=== PATIENT | female | born 1980 | race Caucasian/White ===

== ENCOUNTER 2019-03-20 16:26 | Emergency (ER) | payer OTHER ==
[~2019-03-20] VITALS: Ht 160 cm; Wt 75.3 kg
[~2019-03-20 16:26] MED LIST: ACHD5005 PO; ALB0.5V; ALBU17AE23; ALBU17AE23 IH; ALBU17AE3; ALBUTERAL INHALER PO; ALPR0.25 PO; AMT10T PO; ARIP15TA; ARPZ10T; ASP81CT GT; ASP81CT PO; ATOR20TA66 PO; ATR20T PO; BUTA1TAB46 PO; CEPH500C PO; CETI10TA57 PO; CLON0.5T60 PO; CPR500T PO; CYCL10TA9 PO; DESV100T PO; DESV50TA PO; DICY10CA26 PO; DIVA-20 PO; DIVA500T PO; DIVA500T15; DOXY100C2 PO; DULO30CA PO; DULO60CA6 PO; DVL500TEC; DVL500TSR; ESCI20TA2; ESTR1TAB24 PO; ESTR2TAB PO; FENO160T PO; FLC150T PO; FLUC50TA PO; GEMF600T3 PO; GLMP2T PO; GUAI100L2 PO; HC2.5C30 TOP; HYDR-1231 PO; HYDR-3714 PO; HYDR-690; HYDR-690 PO; HYDR-700 PO; HYDR-707 PO; HYDR12.56 PO; HYDR1CAP2; HYDR1TAB PO; HYDR1TAB75 PO; HYDR1TAB8 OP; HYDR25CA5; HYOS0.1216 PO; HYOS0.1217 PO; IB; IBP800T; IBP800T PO; ILOP8TAB PO; KETO-22 PO; KETO75CA PO; LEVO500T69 PO; LEVO750T6 PO; LISI1TAB6 PO; LISI20TA PO; LISINOPRIL; LORA0.5T34 GT; LORA1TAB; LORA1TAB PO; LRZ1T; MELO-195 PO; METH-53 PO; METR500T PO; MTF500T PO; MTH750T PO; NAPR-243 PO; NAPR-248; NAPR-689 PO; NAPR250T PO; NAPR250T34 PO; NAPR550T PO; NF-ESOM40C PO; NITR-65 PO; NORG1TAB69 PO; OMEP20CA12 PO; ONDA8TAB13 PO; ONDAN4ODT PO; ONDN4T PO; OXYC-272 PO; PALI3TAB2 PO; PALI6TAB2 PO; PHEN200T27 PO; PNT40TEC PO; PRED10TA PO; PRED20TA PO; PRM25T PO; PROP1TAB77; PROP1TAB77 PO; QUET50TA PO; RT-ALBUINH IH; SOLI5TAB4 PO; SRTR100T; STOOL SOFTENER; SUMA25TA3 PO; TAPE50TA PO; TOPI100T PO; TRAM-21 PO; TRAM50TA2 PO; TRAZ150T42 PO; VARE0.5T PO; VISTARIL; ZIPR60CA6 PO; [UNRECOGNIZED DRUG - OTHER]; bcp
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
[2019-03-20] MEDS ORDERED: ACHD5005 PO (18:23)
--- NOTE | 2019-03-20 18:27 | Diagnostic Imaging Report ---
EXAMINATION: Right hand at 6:06 p.m. INDICATION: Injury, hand pain. Three views were obtained. There is no fracture, dislocation or acute bony abnormality evident. The radiocarpal joint is well maintained and appears similar to the prior exam of 02/27/2012. The soft tissues are unremarkable. IMPRESSION: There is no evidence for an acute bony abnormality. Dictated by: Dictated on workstation # [id number]
[2019-03-20 18:38] VITALS: BP 112/76
[2019-03-20] MEDS ORDERED: RX-HYDROCODONE/APAP 5/325 MG #4 TAB PK PO PRN (18:45)
== END 2019-03-20 18:40 | disposition home or self-care (01) ==
LOC: EDUNIT# 16:26 → ER 16:27
DX: S62.91XA Unspecified fracture of right hand, initial encounter for closed fracture (principal); I10 Essential (primary) hypertension; E11.9 Type 2 diabetes mellitus without complications; J45.909 Unspecified asthma, uncomplicated; K58.9 Irritable bowel syndrome, unspecified; Z88.5 Allergy status to narcotic agent; Z88.8 Allergy status to other drugs, medicaments and biological substances; Z88.2 Allergy status to sulfonamides; Z79.52 Long term (current) use of systemic steroids; Z90.710 Acquired absence of both cervix and uterus; Z90.49 Acquired absence of other specified parts of digestive tract; W22.8XXA Striking against or struck by other objects, initial encounter
CPT/HCPCS: 29125; 73130

== ENCOUNTER → 2019-03-25 | Outpatient (CLI) | payer OTHER ==
--- NOTE | 2019-03-25 10:28 | Diagnostic Imaging Report ---
INDICATION: Right hand pain particularly in the region of the 5th metacarpal. Correlation is made with prior right hand radiograph from 03/20/2019. FINDINGS: The visualized metacarpals appear to be intact. Definite metacarpal fracture is not seen. Phalanges are intact. The carpus is unremarkable. IMPRESSION: No acute bony abnormality is detected. Dictated by: Dictated on workstation # [id number]
== END ==
LOC: ORTHO 08:40
PROVIDERS: ATTEND Orthopaedic Surgery
DX: S62.91XA Unspecified fracture of right hand, initial encounter for closed fracture (principal); W22.8XXA Striking against or struck by other objects, initial encounter
CPT/HCPCS: 73130; 99203

== ENCOUNTER 2019-10-02 14:46 | Inpatient (IN) | payer OTHER ==
[~2019-10-02] VITALS: Ht 157.5 cm; Wt 78.2 kg
[2019-10-02] MEDS ORDERED: NS IV 500 ML 500 ML ONE (15:07)
[2019-10-02] MEDS ORDERED: NS IV 500 ML 500 ML IV SCH (15:15)
[2019-10-02] MEDS ORDERED: PROMETHAZINE INJ 25 MG/ML (PHENERGAN) AMP IVP ONE (15:15)
[2019-10-02] MEDS ORDERED: fentaNYL INJECTION 100 MCG/2 ML AMP IVP ONE (15:15)
--- NOTE | 2019-10-02 15:17 | ED Abdominal Pain ---
General Chief Complaint: Abdominal/GI Problems Stated Complaint: ABD PAIN Source of Information: Patient Exam Limitations: No Limitations History of Present Illness Date Seen by Provider: Oct 02, 2019 Time Seen by Provider: 15:00 Initial Comments C/O constant left upper and lower abdominal pain x 1 week. Was evaluated and treated by her PCP on ThursdaySeptember 27 for clinical diverticulitis. States she was placed on ABX but has been unable to take d/t severe nausea/vomiting. Took Phenergan PO this am with no relief. Reports chronic abdominal bloating/swelling x 1 year. Timing/Duration: 1 Week Severity/Quality: Moderate Location: LUQ, LLQ Radiation: No Radiation Activities at Onset: None Associated Symptoms: Nausea/Vomiting Allergies and Home Medications Allergies Coded Allergies: carisoprodol (Unverified Allergy, Severe, RESPIRATORY PROBLEMS, 07/03/09) codeine (Unverified Allergy, Severe, DIFFICULTY BREATHING, 05/24/14) nitrofurantoin (Unverified Allergy, Mild, 05/30/08) tramadol (Unverified Allergy, Mild, hives, 04/12/13) Sulfa (Sulfonamide Antibiotics) (Verified Allergy, Unknown, 08/10/07) phenobarbital (Verified Allergy, Unknown, 08/10/07) tuberculin, purified protein deriva (Verified Allergy, Unknown, 08/10/07) Uncoded Allergies: RESTLESS LEGS MED (Allergy, Mild, 05/30/08) Home Medications Hydrocodone Bit/Acetaminophen 1 Tab Tab, 1 EACH PO Q4-6HR PRN for PAIN-MODERATE Prescribed by: LISA PARSONS on 03/20/191822 Naproxen 500 Mg Tablet, 500 MG PO BID Prescribed by: LISA PARSONS on 07/09/14 184 Prednisone 20 Mg Tablet, 40 MG PO DAILY Prescribed by: AZAM MOORE on 06/21/14 213 Patient Home Medication List Home Medication List Reviewed: Yes Review of Systems Review of Systems Constitutional: weakness EENTM: No Symptoms Reported Respiratory: No Symptoms Reported Cardiovascular: No Symptoms Reported Gastrointestinal: See HPI; Denies Blood Streaked Stools; Diarrhea, Poor Fluid Intake; Denies Rectal Bleeding Genitourinary: No Symptoms Reported Musculoskeletal: no symptoms reported Skin: no symptoms reported Psychiatric/Neurological: No Symptoms Reported Endocrine: No Symptoms Reported Hematologic/Lymphatic: No Symptoms Reported Past Dsspupx-Jjmjyu-Iyeflb Hx Patient Social History Recent Foreign Travel: No Contact w/Someone Who Travel: No Immunizations Up To Date Tetanus Booster (TDap): Unknown Date of Pneumonia Vaccine: Dec 13, 2010 Date of Influenza Vaccine: Nov 23, 2013 Past Medical History Appendectomy, Section, Gallbladder, Hysterectomy Asthma High Cholesterol, Hypertension Seizure Disorder Reproductive Disorders: Yes (S/P HYST. 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 oz. 73.580307ue; 29.00 BMI Method:Stated General Appearance: WD/WN, mild distress HEENT: normal ENT inspection, pharynx normal Neck: full range of motion, normal inspection Respiratory: lungs clear, normal breath sounds, no respiratory distress Cardiovascular: normal peripheral pulses, regular rate, rhythm Gastrointestinal: abnormal bowel sounds (HYPOACTIVE ), distended, guarding, tenderness (GENERALIZED ) Extremities: normal range of motion, normal inspection Back: normal inspection, no CVA tenderness Neurologic/Psychiatric: alert, oriented x 3 Skin: normal color, warm/dry Progress/Results/Core Measures Results/Orders Lab Results Laboratory Tests Test 10/02/19 15:10 10/02/19 16:17 Range/Units White Blood Count 10.9 4.3-11.0 10^3/uL Red Blood Count 5.32 4.35-5.85 10^6/uL Hemoglobin 17.4 H 11.5-16.0 G/DL Hematocrit 46 35-52 % Mean Corpuscular Volume 87 80-99 FL Mean Corpuscular Hemoglobin 33 25-34 PG Mean Corpuscular Hemoglobin Concent 38 H 32-36 G/DL Red Cell Distribution Width 12.1 10.0-14.5 % Platelet Count 221 130-400 10^3/uL Mean Platelet Volume 9.6 7.4-10.4 FL Neutrophils (%) (Auto) 49 42-75 % Lymphocytes (%) (Auto) 39 12-44 % Monocytes (%) (Auto) 7 0-12 % Eosinophils (%) (Auto) 4 0-10 % Basophils (%) (Auto) 1 0-10 % Neutrophils # (Auto) 5.3 1.8-7.8 X 10^3 Lymphocytes # (Auto) 4.3 H 1.0-4.0 X 10^3 Monocytes # (Auto) 0.8 0.0-1.0 X 10^3 Eosinophils # (Auto) 0.4 H 0.0-0.3 10^3/uL Basophils # (Auto) 0.1 0.0-0.1 10^3/uL Urine Color YELLOW Urine Clarity CLEAR Urine pH 5.0 5-9 Urine Specific [place] <=1.005 1.016-1.022 Urine Protein NEGATIVE NEGATIVE Urine Glucose (UA) 3+ H NEGATIVE Urine Ketones NEGATIVE NEGATIVE Urine Nitrite NEGATIVE NEGATIVE Urine Bilirubin NEGATIVE NEGATIVE Urine Urobilinogen 0.2 < = 1.0 MG/DL Urine Leukocyte Esterase NEGATIVE NEGATIVE Urine RBC (Auto) NEGATIVE NEGATIVE Urine RBC NONE /HPF Urine WBC NONE /HPF Urine Squamous Epithelial Cells 0-2 /HPF Urine Crystals NONE /LPF Urine Bacteria NEGATIVE /HPF Urine Casts NONE /LPF Urine Mucus NEGATIVE /LPF Urine Culture Indicated NO Sodium Level 133 L 135-145 MMOL/L Potassium Level 3.8 3.6-5.0 MMOL/L Chloride Level 97 L 98-107 MMOL/L Carbon Dioxide Level 15 L 21-32 MMOL/L Anion Gap 21 H 5-14 MMOL/L Blood Urea Nitrogen 5 L 7-18 MG/DL Creatinine 0.95 0.60-1.30 MG/DL Estimat Glomerular Filtration Rate > 60 BUN/Creatinine Ratio 5 Glucose Level 551 *H 70-105 MG/DL Calcium Level 9.1 8.5-10.1 MG/DL Corrected Calcium 9.0 8.5-10.1 MG/DL Total Bilirubin 0.4 0.1-1.0 MG/DL Aspartate Amino Transf (AST/SGOT) 31 5-34 U/L Alanine Aminotransferase (ALT/SGPT) 54 0-55 U/L Alkaline Phosphatase 187 H 40-136 U/L Total Protein 7.4 6.4-8.2 GM/DL Albumin 4.1 3.2-4.5 GM/DL Lipase 49 8-78 U/L Beta-Hydroxybutyrate (Chem panel) 0.08 0.00-0.27 MMOL/L Blood Gas Puncture Site LT AC Blood Gas Patient Temperature 98.2 Arterial Blood pH 7.43 7.37-7.43 Arterial Blood Partial Pressure CO2 41 35-45 MMHG Arterial Blood Partial Pressure O2 60 L 79-93 MMHG Arterial Blood HCO3 27 23-27 MMOL/L Arterial Blood Total CO2 28.1 21.0-31.0 MMOL/L Arterial Blood Oxygen Saturation 91 L 94-100 % Arterial Blood Base Excess 2.7 H -2.5-2.5 MMOL/L Marito Test YES-POS Blood Gas Ventilator Setting NO Blood Gas Inspired Oxygen NA My Orders Orders - SHEYLA GARCÍA APRN Urinalysis (10/02/19 14:57) Cbc With Automated Diff (10/02/19 14:57) Comprehensive Metabolic Panel (10/02/19 14:57) Iv Heplock-Insert (Order) (10/02/19 14:57) Ct Abdomen/Pelvis W (10/02/19 15:04) Fentanyl Injection (Sublimaze Injection (10/02/19 15:15) Promethazine Injection (Phenergan Injec (10/02/19 15:15) Ns Iv 500 Ml (Sodium Chloride 0.9%) (10/02/19 15:15) Ns Iv 500 Ml (Sodium Chloride 0.9%) (10/02/19 15:07) Lipase (10/02/19 15:19) Ns Iv 1000 Ml (Sodium Chloride 0.9%) (10/02/19 16:15) Insulin (Regular) Human (Novolin R (Per (10/02/19 16:15) Medications Given in ED Current Medications Medications Dose Ordered Sig/Luigi Route Start Time Stop Time Status Last Admin Dose Admin Fentanyl Citrate 50 mcg ONCE ONCE IVP 10/02/19 15:15 10/02/19 15:16 DC 10/02/19 15:14 50 MCG Iohexol 100 ml ONCE ONCE IV 10/02/19 15:30 10/02/19 15:36 DC 10/02/19 15:31 97 ML Promethazine HCl 25 mg ONCE ONCE IVP 10/02/19 15:15 10/02/19 15:16 DC 10/02/19 15:14 25 MG Sodium Chloride 100 ml ONCE ONCE IV 8/9/20 15:30 10/02/19 15:36 DC 10/02/19 15:33 80 ML Vital Signs/I&O 10/02/19 14:55 Temp 36.8 Pulse 103 Resp 15 B/P (MAP) 149/111 (124) Pulse Ox 95 O2 Delivery Room Air Progress Progress Note : Time: 16:48 Progress Note Discussed with Dr. Boykin. Accepted admission for colitis, hyperglycemia. Departure Communication (Admissions) Time/Spoke to Admitting Phy: 16:48 Impression Primary Impression: Colitis Additional Impression: Hyperglycemia Disposition: ADMITTED INPATIENT Condition: Stable Admissions Decision to Admit Reason: Admit from ER (General) Decision to Admit/Date: Oct 02, 2019 Time/Decision to Admit Time: 16:50 Departure-Patient Inst. Referrals: NO,LOCAL PHYSICIAN (PCP/Family) Primary Care Physician SHEYLA GARCÍA APRN Oct 02, 2019 15:17
[2019-10-02] MEDS ORDERED: IOHEXOL 350 MG/ML 100 ML (OMNIPAQUE 350) VIAL IV ONE (15:30)
[2019-10-02] MEDS ORDERED: NS 100 ML (IVPB) BAG IV ONE (15:30)
[2019-10-02] MEDS ORDERED: HOLD METFORMIN - RECEIVED CONTRAST 20 ML VIAL IV SCH (15:30)
[2019-10-02 15:31] LABS: BASOPHILS # (AUTO) 0.1 10^3/uL (0.0-0.1); BASOPHILS % (AUTO) 1 % (0-10); EOSINOPHILS # (AUTO) 0.4 10^3/uL (0.0-0.3); EOSINOPHILS % (AUTO) 4 % (0-10); HEMATOCRIT 46 % (35-52); HEMOGLOBIN 17.4 G/DL (11.5-16.0); LYMPHOCYTES # (AUTO) 4.3 X 10^3 (1.0-4.0); LYMPHOCYTES % (AUTO) 39 % (12-44); MEAN CORPUSCULAR HEMOGLOBIN 33 PG (25-34); MEAN CORPUSCULAR HGB CONC 38 G/DL (32-36); MEAN CORPUSCULAR VOLUME 87 FL (80-99); MEAN PLATELET VOLUME 9.6 FL (7.4-10.4); MONOCYTES # (AUTO) 0.8 X 10^3 (0.0-1.0); MONOCYTES % (AUTO) 7 % (0-12); NEUTROPHILS # (AUTO) 5.3 X 10^3 (1.8-7.8); NEUTROPHILS % (AUTO) 49 % (42-75); PLATELET COUNT 221 10^3/uL (130-400); RED CELL DISTRIBUTION WIDTH 12.1 % (10.0-14.5); WHITE BLOOD COUNT 10.9 10^3/uL (4.3-11.0)
[2019-10-02 15:32] LABS: BILIRUBIN,URINE NEGATIVE (NEGATIVE); COLOR,URINE YELLOW; GLUCOSE, URINE (UA) 3+ (NEGATIVE); KETONES,URINE NEGATIVE (NEGATIVE); LEUKOCYTE ESTERASE ,URINE NEGATIVE (NEGATIVE); NITRITE,URINE NEGATIVE (NEGATIVE); PROTEIN,URINE NEGATIVE (NEGATIVE)
[2019-10-02 15:43] LABS: ALBUMIN 4.1 GM/DL (3.2-4.5); CHLORIDE 97 MMOL/L (98-107); POTASSIUM 3.8 MMOL/L (3.6-5.0); SODIUM 133 MMOL/L (135-145)
[2019-10-02 15:44] LABS: CALCIUM 9.1 MG/DL (8.5-10.1)
[2019-10-02 15:46] LABS: TOTAL PROTEIN 7.4 GM/DL (6.4-8.2)
[2019-10-02 15:47] LABS: BACTERIA,URINE NEGATIVE /HPF; BILIRUBIN,TOTAL 0.4 MG/DL (0.1-1.0); CARBON DIOXIDE 15 MMOL/L (21-32); CLARITY,URINE CLEAR; GLUCOSE 551 MG/DL (70-105); SQUAMOUS EPITHELIAL CELL,UR 0-2 /HPF
[2019-10-02 15:49] LABS: ALKALINE PHOSPHATASE 187 U/L (40-136); CREATININE SERUM 0.95 MG/DL (0.60-1.30); GFR ESTIMATED > 60
--- NOTE | 2019-10-02 15:49 | Diagnostic Imaging Report ---
PROCEDURE: CT abdomen and pelvis with contrast. TECHNIQUE: Multiple contiguous axial images were obtained through the abdomen and pelvis after administration of intravenous contrast. Auto Exposure Controls were utilized during the CT exam to meet ALARA standards for radiation dose reduction. INDICATION: Left-sided abdominal pain. FINDINGS: There is long segment spasm with some edema of the colon from the mid transverse colon to the rectum. There is mild enhancement noted also of the bowel wall following IV contrast. Adjacent pericolic veins are mildly dilated as well. The appendix is absent. There is no evidence of focal diverticulitis. The stomach and small bowel are not distended. There is no free air or free fluid. The bladder appears normal. No pelvic masses. The uterus is absent. There is rather marked hepatomegaly with hepatic steatosis. Gallbladder is absent. The bile ducts are not dilated. Pancreas is normal. The adrenal glands and kidneys are normal. There is good enhancement of the aorta and abdominal vessels. Mild atherosclerotic change. There is no free air or free fluid. No bony abnormality. Lung bases are clear. IMPRESSION: 1. Long segment spasm of the colon with diffuse edema and enhancement as well as venous congestion would be consistent with colitis. 2. There is no free air or free fluid. No adenopathy of pathologic size. 4. The appendix and gallbladder are absent. 5. Hepatomegaly with hepatic steatosis. Dictated by: Dictated on workstation # [id number]
[2019-10-02 15:50] LABS: BUN/CREATININE RATIO 5
[2019-10-02 15:52] LABS: ALANINE AMINOTRANSFERASE 54 U/L (0-55); LIPASE 49 U/L (8-78)
[2019-10-02] MEDS ORDERED: NS IV 1000 ML 1,000 ML IV SCH (16:15)
[2019-10-02] MEDS ORDERED: inSUlin (REGULAR) HUMAN 1 UNIT/0.01 ML (CHARGE PER UNIT) IV SCH (16:15)
[2019-10-02 16:33] LABS: ABG BASE EXCESS 2.7 MMOL/L (-2.5-2.5); ABG OXYGEN SATURATION 91 % (94-100); ABG PCO2 41 MMHG (35-45); ABG PH 7.43 (7.37-7.43); ABG PO2 60 MMHG (79-93); ABG TCO2 28.1 MMOL/L (21.0-31.0)
[2019-10-02 16:34] LABS: ALLENS TEST YES-POS; VENTILATOR NO
[2019-10-02 16:35] LABS: PATIENT TEMP 98.2
--- NOTE | 2019-10-02 17:55 | NUR ---
ROBIN BRYCE admitted to room 410-1, with an admitting diagnosis of COLITIS & HIGH BLOOD SUGAR, on 10/02/19 from ER via W/C, accompanied by STAFF.ROBIN WU introduced to surroundings, call light, bed controls, phone, TV, temperature control, lights, meal times, smoking policy, visitor policy, side rail policy, bathrooms and showers. Patient Rights given to patient in the handbook.ROBIN WU verbalizes understanding that [facility] is not responsible for the loss or damage to any personal effects or valuables that are kept in the patients posession during their hospitalization. The following Patient Care Plans were discussed with the PT: Discharge Planning, PAIN CONTROL,IV THERAPY, and TESTS AND PROCEDURES. ROBIN WU verbalizes understanding of Interdisciplinary Patient Education. Patient and/or family were informed about the Rapid Response Team and its purpose.
[2019-10-02] MEDS ORDERED: cefTRIAXone FOR IV USE 1,000 MG in WATER (STERILE) FOR INJECTION 10 ML IV SCH (18:15)
[2019-10-02] MEDS ORDERED: fentaNYL INJECTION 100 MCG/2 ML AMP IVP PRN (18:15)
[2019-10-02] MEDS ORDERED: fentaNYL INJECTION 100 MCG/2 ML AMP INJ PRN (18:15)
[2019-10-02] MEDS ORDERED: PROMETHAZINE INJ 25 MG/ML (PHENERGAN) AMP IVP PRN ×2 (18:15)
[2019-10-02] MEDS ORDERED: LACTATED RINGERS 1,000 ML IV SCH (18:15)
[2019-10-02 18:23] VITALS: BP 105/68
[2019-10-02] MEDS: metroNIDAZOLE 500 MG/100 ML IVPB (PRE-MIX) IV SCH (18:33)
[2019-10-02] MEDS: fentaNYL INJECTION 100 MCG/2 ML AMP INJ PRN (18:36)
[2019-10-02] MEDS: LACTATED RINGERS 1,000 ML IV SCH (18:40)
[2019-10-02] MEDS: [UNRECOGNIZED DRUG - REMARK] SC SCH ×2 (18:41→22:08)
[2019-10-02] MEDS ORDERED: cefTRIAXone 1,000 MG/SWFI 10 ML IV PUSH IV SCH ×2 (19:00)
[2019-10-02 20:00] VITALS: BP 105/68
[2019-10-02] MEDS ORDERED: ENOXAPARIN 40 MG/0.4 ML (LOVENOX) SYR SQ SCH (21:00)
[2019-10-02] MEDS ORDERED: metroNIDAZOLE 500MG/100ML IVPB 100 ML IV SCH (22:00)
[2019-10-03] VITALS: BP 107/71
[2019-10-03 03:20] VITALS: BP 115/77
[2019-10-03] MEDS: LACTATED RINGERS 1,000 ML IV SCH ×2 (03:23→12:32)
[2019-10-03] MEDS: fentaNYL INJECTION 100 MCG/2 ML AMP INJ PRN ×2 (03:24→10:55)
[2019-10-03 05:28] LABS: BASOPHILS # (AUTO) 0.1 10^3/uL (0.0-0.1); BASOPHILS % (AUTO) 1 % (0-10); EOSINOPHILS # (AUTO) 0.3 10^3/uL (0.0-0.3); EOSINOPHILS % (AUTO) 4 % (0-10); HEMATOCRIT 39 % (35-52); HEMOGLOBIN 14.2 G/DL (11.5-16.0); LYMPHOCYTES % (AUTO) 50 % (12-44); MEAN CORPUSCULAR HEMOGLOBIN 33 PG (25-34); MEAN CORPUSCULAR HGB CONC 37 G/DL (32-36); MEAN CORPUSCULAR VOLUME 88 FL (80-99); MEAN PLATELET VOLUME 9.6 FL (7.4-10.4); MONOCYTES # (AUTO) 0.6 X 10^3 (0.0-1.0); MONOCYTES % (AUTO) 7 % (0-12); NEUTROPHILS # (AUTO) 3.1 X 10^3 (1.8-7.8); NEUTROPHILS % (AUTO) 38 % (42-75); PLATELET COUNT 189 10^3/uL (130-400); RED CELL DISTRIBUTION WIDTH 11.7 % (10.0-14.5)
[2019-10-03 05:47] LABS: ALBUMIN 3.1 GM/DL (3.2-4.5); CHLORIDE 107 MMOL/L (98-107); POTASSIUM 3.2 MMOL/L (3.6-5.0); SODIUM 135 MMOL/L (135-145)
[2019-10-03 05:48] LABS: CALCIUM 7.7 MG/DL (8.5-10.1)
[2019-10-03 05:49] LABS: GLUCOSE 263 MG/DL (70-105)
[2019-10-03 05:50] LABS: TOTAL PROTEIN 5.5 GM/DL (6.4-8.2)
[2019-10-03 05:51] LABS: BILIRUBIN,TOTAL 0.2 MG/DL (0.1-1.0); CARBON DIOXIDE 17 MMOL/L (21-32)
[2019-10-03 05:53] LABS: ALKALINE PHOSPHATASE 126 U/L (40-136); CREATININE SERUM 0.59 MG/DL (0.60-1.30); GFR ESTIMATED > 60
[2019-10-03 05:54] LABS: BUN/CREATININE RATIO 12
[2019-10-03 05:56] LABS: ALANINE AMINOTRANSFERASE 40 U/L (0-55)
[2019-10-03] MEDS: metroNIDAZOLE 500 MG/100 ML IVPB (PRE-MIX) IV SCH (07:10)
[2019-10-03] MEDS: [UNRECOGNIZED DRUG - REMARK] SC SCH ×2 (07:10→10:56)
[2019-10-03 08:00] VITALS: BP 109/62
--- NOTE | 2019-10-03 11:03 | NUR ---
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 Spoke to Dr Edgar
--- NOTE | 2019-10-03 11:16 | NUR ---
Pt is Alevism and declines sacraments.
[2019-10-03 12:00] VITALS: BP 118/73
--- NOTE | 2019-10-03 12:03 | Short Stay Summary-Hospitalist ---
History of Present Illness HPI/Chief Complaint Pt is a 38yoCF with a history of diverticulitis who presented to the ER due to intractable nausea and vomiting. She was seen by her primary care doctor and diagnosed clinically with diverticulitis and started her on antibiotics. Despite this her pain worsened and she was unable to keep anything down including her antibiotics and phenergan. She was admitted for IV abx and to help control nausea. This morning she states she is feeling much better and is actually requesting discharge home. She states Source: patient Date Seen 10/03/19 Time Seen by a Provider: 12:03 Attending Physician Denice Boykin MD PCP No,Local Physician Referring Physician Date of Admission Oct 02, 2019 at 16:55 Home Medications & Allergies Home Medications Reviewed patient Home Medication Reconciliation performed by pharmacy medication reconciliations cardiopulmonary technician and eeg tech and/or nursing. Patients Allergies have been reviewed. Allergies Allergies Coded Allergies carisoprodol (Unverified Allergy, Severe, RESPIRATORY PROBLEMS, 07/03/09) codeine (Unverified Allergy, Severe, DIFFICULTY BREATHING, 05/24/14) nitrofurantoin (Unverified Allergy, Mild, 05/30/08) tramadol (Unverified Allergy, Mild, hives, 04/12/13) Sulfa (Sulfonamide Antibiotics) (Verified Allergy, Unknown, 08/10/07) phenobarbital (Verified Allergy, Unknown, 08/10/07) tuberculin, purified protein deriva (Verified Allergy, Unknown, 08/10/07) Uncoded Allergies RESTLESS LEGS MED ( Allergy, Mild, 05/30/08) Past Muqxzmq-Kpmqkz-Wspkaa Hx Patient Social History Alcohol Use: Past History Recreational Drug Use: Yes (PAST HISTORY) Drug of Choice: METH Smoking Status: Current Everyday Smoker Physical Abuse Screen: No Sexual Abuse: No Recent Foreign Travel: No Contact w/other who traveled: No Recent Hopitalizations: Yes (MRI 09/29/19 AT [facility] [facility] FOR LEFT FOOT PAIN) Recent Infectious Disease Expo: No Immunizations Up To Date Tetanus Booster (TDap): Unknown Date of Pneumonia Vaccine: Dec 13, 2010 Date of Influenza Vaccine: Nov 23, 2013 Seasonal Allergies Seasonal Allergies: No Past Medical History Surgeries: Appendectomy, Section, Gallbladder, Hysterectomy Cardiac: High Cholesterol, Hypertension Neurological: Seizure Disorder Reproductive: Yes (S/P HYST. CHRONIC PELVIC PAIN) Sexually Transmitted Disease: No Hysterectomy Genitourinary: Bladder Infection Gastrointestinal: Hemorrhoids, Chronic Diarrhea, Ulcer, Gall Bladder Disease, Irritable Bowel Endocrine: Diabetes, Non-Insulin dep Are Your Blood Sugars Over 250: Yes Psychosocial: Bipolar, Depression History of Blood Disorders: No Adverse Reaction to Blood [place]: No Family History Diabetes mellitus 19 MOTHER No Pertinent Family Hx Physical Exam Physical Exam Vital Signs Vital Signs - First Documented 10/02/19 14:55 Temp 36.8 Pulse 103 Resp 15 B/P (MAP) 149/111 (124) Pulse Ox 95 O2 Delivery Room Air Capillary Refill : Less Than 3 Seconds Height, Weight, BMI Height: 5'2" Weight: 161lbs. oz. 73.678305op; 31.52 BMI Method:Stated Results Results/Procedures Labs Laboratory Tests 10/02/19 15:10 10/03/19 05:04 Patient resulted labs reviewed. Short Stay Diagnosis Discharge Diagnosis-Short Stay Admission Diagnosis Colitis Final Discharge Diagnosis Colitis Conclusion Plan Colitis Continue on IV abx Continue IV pain medicine Will need outpatient follow up for colonoscopy, informed patient of this Pt is requesting DC home If tolerates diet and pain controlled can DC home IDDMII Resume home insulin SSI Clinical Quality Measures DVT/VTE Risk/Contraindication: Risk Factor Score Per Nursin RFS Level Per Nursing on Admit: 3=High CANDY NOLASCO MD Oct 03, 2019 12:03
[2019-10-03] MEDS ORDERED: METR-145 PO (12:23)
[2019-10-03] MEDS ORDERED: AMOX1TAB12 PO (12:23)
[2019-10-03] MEDS ORDERED: CARI3CAP PO (12:23)
[2019-10-03] MEDS ORDERED: PROM25TA14 PO (12:23)
[2019-10-03] MEDS ORDERED: IBUP-2473 PO (12:23)
[2019-10-03] MEDS ORDERED: BUSP7.5T5 PO (12:23)
[2019-10-03] MEDS ORDERED: PROP10TA8 PO (12:23)
[2019-10-03] MEDS ORDERED: ACET325T38 PO (12:23)
[2019-10-03] MEDS ORDERED: MELO15TA39 PO (12:23)
--- NOTE | 2019-10-03 12:24 | NUR ---
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
--- NOTE | 2019-10-03 12:29 | Discharge Inst-Simple/Standard ---
Discharge Inst-Standard Discharge Medications New, Converted or Re-Newed RX: Transmitted to Pharmacy Patient Instructions/Follow Up Plan of Care/Instructions/FU: Please continue to take your medications as written. Please follow up with your primary doctor in the next week to follow up this hospital stay. Activity as Tolerated: Yes Discharge Diet: ADA Diet Return to The Hospital For: Worsening pain, fever, shortness of breath, chest pain, if you feel you are getting worse. CANDY NOLASCO MD Oct 03, 2019 12:29
[2019-10-03] MEDS ORDERED: INSU100I23 SC (12:45)
[2019-10-03] MEDS ORDERED: INSU300I SC (12:45)
--- NOTE | 2019-10-03 13:29 | NUR ---
RD ASSESSMENT PMHx: hypercholesterolemia; HTN; seizure disorder; DM; irritable bowel PT INTERACTION: Pt was awake and pleasant during nutrition assessment. Pt states current appetite is "so-so" and has been this way for about 1w. Note avg PO intake 100% x2meal, per chart review. Pt states following a regular diet at home, and has no issues with chewing/swallowing food. Pt states recent issues with nausea, vomiting, and diarrhea, and that her last BM was 8/10. Note pt not currently on bowel regimen per chart review. Pt states 8# wt loss x2mon. Note unable to determine recent wt hx, per chart review. Pt states current DM management as "I can't keep my blood sugars down." Note unable to determine recent HbA1c, per chart review. ABNORMAL NUTRITION-RELATED LAB VALUES LOW: K 3.2; cr 0.59; Ca 7.7; Pro 5.5; alb 3.1 HIGH: glu 263 Est. kcal needs: 1550 kcal | 20 kcal/kg Est. Pro needs: 63 g Pro | 0.8 g Pro/kg PES STATEMENT: Food- and nutrition-related knowledge deficit (NB-1.1) related to lack of previous nutrition-related information as evidenced by pt interview INTERVENTION: Continue with current diet order of CHO 60g/m 3snack diet. Discussed and provided diet education on DM management. Discussed CHO counting, fiber content, portion control, and smartphone applications. Pt verbalized understanding of information provided. Will continue to follow and reassess as pt needs, intake, and status change. MONITOR/EVALUATE: PO Intake; Plan of Care; Hydration Status; Weight Status; Lab Values Bogdan Cruz, MS, RD, LD
[2019-10-03 14:54] VITALS: BP 118/73
== END 2019-10-03 15:30 | disposition home or self-care (01) | DRG 392 ==
LOC: ER 14:46 → EDUNIT# 14:46 → 4TH 16:55
PROVIDERS: ADMIT Internal Medicine; ATTEND Internal Medicine
DX: K52.9 Noninfective gastroenteritis and colitis, unspecified (principal); E11.65 Type 2 diabetes mellitus with hyperglycemia; J45.909 Unspecified asthma, uncomplicated; E78.00 Pure hypercholesterolemia, unspecified; I10 Essential (primary) hypertension; G40.909 Epilepsy, unspecified, not intractable, without status epilepticus; F31.9 Bipolar disorder, unspecified; Z90.49 Acquired absence of other specified parts of digestive tract; Z90.710 Acquired absence of both cervix and uterus
CPT/HCPCS: 36415; 74177; 80053; 81000; 82010; 82805; 83690; 85025